=== PATIENT | male | born 1965 | race Caucasian/White ===

== ENCOUNTER → 2017-12-17 | Outpatient (CLI) | payer OTHER ==
[~2017-12-17] MED LIST: ALPRAZOLAM 0.50.5 M1 PO; CALCIUM PO; CEPHALEXIN 500500 M1 PO; CLONAZEPAM 0.50.5 M1 PO; DOCUPRENE100 MG PO; DOCUSATE SODIU100 MG PO; FLECAINIDE ACE100 MG PO; GLYCOLAX17 GM PO; HI-CAL500 MG PO; MEXILETINE 150150 MG PO; OMEGA 3-6-9 CO1 EACH PO; PACERONE 200 M200 M1 PO; POTASSIUM20 PO; SAW PALMETTO C1 EACH PO; SERTRALINE HCL50 MG PO; SYNTHROID50 MCG PO; TOPROL XL25 MG PO; VITAMIN E400 UNIT PO; VITAMINC500 PO; XANAX 0.25 MG0.25 MG PO; ZOLOFT 50 MG TA50 M1 PO
--- NOTE | ~2017-12-17 | 2DMMODE ---
[facility] [place] [address] 2 D/M-MODE ECHOCARDIOGRAM Name: ANA RODRIGUEZ Room #: REG [facility]#: [id number] Admission: 12/17/17 Attend Phys: Pal Wilson Discharge: Date of : 65 Date of Service: 12/17/17 1251 Report #: [id number] THIS REPORT FOR: //name// APPROVED REPORT Study performed: 12/17/2017 11:20:15 EXAM: Comprehensive 2D, Doppler, and color-flow Echocardiogram Patient Location: Out-Patient Status: routine BSA: 2.24 HR: 60 bpm BP: 128/82 mmHg Rhythm: NSR Other Information Study Quality: Adequate Indications Pre-Op new defibrillator. Hx: V-Tach, cardiomyopathy. 2D Dimensions RVDd: 37.70 mm IVSd: 10.46 (7-11mm) LVOT Diam: 22.68 (18-24mm) LVDd: 53.49 mm PWd: 10.21 (7-11mm) Ascending Ao: 37.23 (22-36mm) LVDs: 33.84 (25-40mm) Aortic Root: 40.22 mm Volumes Left Atrial Volume (Systole) Single Plane 4CH: 41.34 mL Single Plane 2CH: 57.71 mL LA ESV Index: 24.00 mL/m2 Aortic Valve AoV Peak Rishabh.: 1.18 m/s AO Peak Gr.: 5.52 mmHg LVOT Max P.04 mmHg LVOT Max V: 1.23 m/s EN Vmax: 4.22 cm2 Mitral Valve E/A Ratio: 1.5 MV Decel. Time: 244.37 ms MV E Max Rishabh.: 0.76 m/s [facility] [address] [place] [address] 2 D/M-MODE ECHOCARDIOGRAM Name: ANA RODRIGUEZ Room #: [facility]#: [id number] Admission: 12/17/17 Attend Phys: Pal Wilson Discharge: Date of : 65 Date of Service: 12/17/17 1251 Report #: [id number] MV A Rishabh.: 0.50 m/s MV PHT: 70.87 ms IVRT: 96.89 ms Pulmonary Valve PV Peak Rishabh.: 0.76 m/s PV Peak Gr.: 2.30 mmHg Pulmonary Vein P Vein S: 0.60 m/s P Vein A: 0.28 m/s P Vein D: 0.61 m/s P Vein A Dur.: 110.7 msec P Vein S/D Ratio: 0.98 Tricuspid Valve TR Peak Rishabh.: 2.37 m/s RAP Estimate: 5.00 mmHg TR Peak Gr.: 22.53 mmHg PA Pressure: 28.00 mmHg Left Ventricle The left ventricle is normal size. There is normal LV segmental wall motion. There is normal left ventricular wall thickness. Left ventricular systolic function is normal. LVEF is 55-60%. Right Ventricle The right ventricle is normal size. The right ventricular systolic function is normal. Device lead is present in the right ventricle. Atria The left atrium size is normal. The right atrium size is normal. Aortic Valve The aortic valve is normal in structure. No aortic regurgitation is present. There is no aortic valvular stenosis. Mitral Valve The mitral valve is normal in structure. Mild mitral regurgitation. Tricuspid Valve The tricuspid valve is normal in structure. Trace tricuspid regurgitation. Estimated PAP is 25-30mmHg. Pulmonic Valve The pulmonary valve is normal in structure. Mild pulmonic regurgitation. [address] [address] 2 D/M-MODE ECHOCARDIOGRAM Name: MICHAELANA Room #: [facility]alla#: [id number] Admission: 12/17/17 [facility]end [facility]: [facility] Discharge: Date of : 65 Date of Service: 12/17/17 1251 Report #: [id number] Great Vessels Aortic root is mildly dilated at 4.0cm. The ascending aorta is normal in size. IVC is normal in size and collapses >50% with inspiration. Pericardium There is no pericardial effusion. <Conclusion> The left ventricle is normal size. There is normal left ventricular wall thickness. Left ventricular systolic function is normal. The right ventricle is normal size. Device lead is present in the right ventricle. The left atrium size is normal. The aortic valve is normal in structure. Mild mitral regurgitation. Trace tricuspid regurgitation. Estimated PAP is 25-30mmHg. <ELECTRONICALLY SIGNED> By: Jalil Torres MD 12/17/17 1251 1251 125 Jalil Torres MD /INF
== END ==
LOC: CV 11:06
DX: Z01.818 Encounter for other preprocedural examination (principal); I37.1 Nonrheumatic pulmonary valve insufficiency; I34.0 Nonrheumatic mitral (valve) insufficiency; I42.9 Cardiomyopathy, unspecified; Z95.810 Presence of automatic (implantable) cardiac defibrillator

== ENCOUNTER → 2017-12-20 | Outpatient (CLI) | payer OTHER ==
--- NOTE | ~2017-12-20 | P ---
[facility] [address] PROCEDURE REPORT Name: ANA RODRIGUEZ Room #: REG [facility]#: [id number] Admission: 12/20/17 Attend Phys: Pal Wilson MD Discharge: Date of : 65 Report #: [id number] THIS REPORT FOR: //name// CC: Pal Pandey DATE OF SERVICE: 12/20/2017 PREOPERATIVE DIAGNOSIS: Implantable cardioverter-defibrillator at elective replacement indicator. POSTOPERATIVE DIAGNOSIS: Implantable cardioverter-defibrillator at elective replacement indicator. HISTORY: The patient is a 52-year-old with a history of recurrent ventricular tachycardia, status post multiple VT ablations whose ICD is currently at the elective replacement interval. He is here for generator exchange. ANESTHESIA: The patient underwent MAC anesthesia with no anesthesia related complications. DESCRIPTION OF PROCEDURE: The patient underwent informed consent. We discussed the details of the procedure including the risks, which include but not limited to bleeding, infection, need for possible lead revisions. He understood these risks and was willing to proceed. The patient was brought to the EP laboratory in a fasting and sedated state and prepped and draped in a sterile fashion. He received IV antibiotics prior to initiation of the procedure. Next, I injected lidocaine at the prior incision site. Incision was made and the chronic pocket was entered. The old device was removed from the pocket. I made room for the new generator and expanded the lower aspect of the pocket and removed the superior aspect of the capsule. Next, the new device was connected to the preexisting leads. This is a single coil ICD with an atrial lead. The device was tested and found to be functioning normally. The ventricular tachycardia therapies were programmed to the prior settings. The pocket was irrigated with vancomycin and then closed in 3 layers using 2-0 for the deep layer, 3-0 for the mid layer, 4-0 for the subcuticular layer. Surgical glue was placed to the outer skin layer. The patient awoke neurologically and hemodynamically intact. No complications and no significant bleeding. The explanted generator is [employer] model #E110, serial #[id number], implanted back on 11/16/2007. The newly implanted generator was a [employer] model #[id number], serial #[id number]. The atrial lead was a [employer] model #4087, serial #[id number], implanted on 07/30/2001. The [employer] ICD lead was a model #6943, serial #[id number]. This was also implanted on 07/30/2001. The atrial lead demonstrated a P-wave of 3.8 millivolts, pacing impedance of 595 ohms and a pacing threshold of 1.25 volts at 0.[address] [address] PROCEDURE REPORT Name: ANA RODRIGUEZ Room #: REG [facility] Lianne#: [id number] Admission: 12/20/17 Attend Phys: Pal Wilson MD Discharge: Date of : 65 Report #: [id number] The RV lead demonstrated R-wave of 8.1 millivolts, pacing impedance of 450 ohms and a pacing threshold of 1.25 volts at 0.5 milliseconds. The device was programmed to the DDDR 60-120 mode. The VT zone was set at 176-200 beats per minute with ATP x 6 followed by max output shocks. The VF zone was set at greater than 200 beats per minute with ATP x 1 followed by max output shocks. CONCLUSIONS: 1. Successful ICD generator exchange. 2. Satisfactory atrial and ventricular pacing and sensing thresholds. By: [id number] Pal Wilson MD /nt
[2017-12-20 10:36] VITALS: BP 139/86
[2017-12-20 10:40] LABS: ABSOLUTE NEUTROPHILS 4.7 thou/uL (1.4-8.2); BASOPHILS 0.3 % (0.0-2.0); EOSINOPHILS 1.7 % (0.0-3.0); HEMATOCRIT 44.7 % (42.0-52.0); HEMOGLOBIN 15.6 gm/dL (14.0-18.0); LYMPHOCYTES 20.2 % (24.0-44.0); MCH 32.8 pg (26.0-34.0); MCHC 34.8 g/dL (28.0-37.0); MCV 94.2 fL (80.0-100.0); MONOCYTES 7.6 % (1.0-8.0); PLATELET COUNT 267 thou/uL (150-400); POLYS 70.2 % (36.0-66.0); RBC 4.74 mil/uL (4.50-6.00); RDW 12.5 % (10.5-14.5); WBC 6.7 thou/uL (4.0-11.0)
[2017-12-20 10:50] LABS: ANION GAP 5 mmol/L (7-16); BUN 14 mg/dL (7-18); CALCIUM 8.7 mg/dL (8.5-10.1); CHLORIDE 103 mmol/L (98-107); CO2 28 mmol/L (21-32); GLUCOSE 106 mg/dL (74-106); POTASSIUM 4.6 mmol/L (3.5-5.1); SODIUM 136 mmol/L (136-145)
[2017-12-20 10:53] LABS: APTT 24.3 Seconds (24.5-32.8)
[2017-12-20 10:55] LABS: ALBUMIN 4.3 g/dL (3.4-5.0); DIRECT BILIRUBIN < 0.1 mg/dL (<0.1-0.3); SGOT 37 U/L (15-37); SGPT 68 U/L (30-65); TOTAL BILIRUBIN 0.3 mg/dL (<0.1-1.0)
== END | disposition home or self-care (01) ==
LOC: CATH 10:00
PROVIDERS: Internal Medicine Cardiovascular Disease
DX: Z45.02 Encounter for adjustment and management of automatic implantable cardiac defibrillator (principal); I47.2 Ventricular tachycardia; I42.9 Cardiomyopathy, unspecified; K21.9 Gastro-esophageal reflux disease without esophagitis; Z95.5 Presence of coronary angioplasty implant and graft; Z98.890 Other specified postprocedural states; Z79.899 Other long term (current) drug therapy; Z79.01 Long term (current) use of anticoagulants
CPT/HCPCS: 62110; 62900; 70005